=== PATIENT | male | born 1980 | race Caucasian/White ===

== ENCOUNTER 2020-01-03 16:07 | Emergency (ER) | payer BC ==
[2020-01-03 16:43] VITALS: BP 146/100; PULSE 70; TEMP 97.2; BMI 33.9
--- OUTSIDE RECORDS SUMMARY | 2020-01-03 16:51 | XMS ---
:1980 Author Organization [facility] Support Name Relationship Address Phone [address] [place] Unavailable [place] [address] MARIANNE MER[place] [address] Re-disclosure Warning The records that you are about to access may contain information from federally- assisted alcohol or drug abuse programs. If such information is present, then the following federally mandated warning applies: This information has been disclosed to you from records protected by federal confidentiality rules (42 CFR part 2). The federal rules prohibit you from making any further disclosure of this information unless further disclosure is expressly permitted by the written consent of the person to whom it pertains or as otherwise permitted by 42 CFR part 2. A general authorization for the release of medical or other information is NOT sufficient for this purpose. The Federal rules restrict any use of the information to criminally investigate or prosecute any alcohol or drug abuse patient.The records that you are about to access may contain highly sensitive health information, the redisclosure of which is protected by Article 27-F of the [facility] Public Health law. If you continue you may haveaccess to information: Regarding HIV / AIDS; Provided by facilities licensed or operated by the [facility] Office of Mental Health; or Provided by the [facility] Office for People With Developmental Disabilities. If such information is present, then the following [facility] mandated warning applies: This information has been disclosed to you from confidential records which are protected by state law. State law prohibits you from making any further disclosure of this information without the specific written consent of the person to whom it pertains, or as otherwise permitted by law. Any unauthorized further disclosure in violation of state law may result in a fine or detention sentence or both. A general authorization for the release of medical or other information is NOT sufficient authorization for further disclosure. Insurance Providers Payer name Policy type / Policy ID Covered Covered democrat's Policy Plan Coverage type democrat ID relationship to Elder Information elder BC OUT OF [id number] STATE [id number] Results ID Date Data Source [id number] 07/18/2019 12:00:00 AM EDT [facility] Name Value Range Interpretation Code Description Data Jess rce(s) Supporting Document(s ) nCoV [facility] RNA XXX ADEEL+probe- Imp This lab was ordered by FATOU BABCOCK M.D. and reported by [facility] ID Date Data Source [id number] 07/02/2019 12:00:00 AM EDT [facility] Name Value Range Interpretation Code Description Data Jess rce(s) Supporting Document(s ) 2018-nCoV [facility] RNA XXX ADEEL+probe- Imp This lab was ordered by FATOU BABCOCK M.D. and reported by [facility] Procedure
[2020-01-03] MEDS ORDERED: DICYCLOMINE HCL 20 MG TABLET PO ONE (17:27)
[2020-01-03] MEDS ORDERED: FAMOTIDINE 20 MG/50 ML IVPB 20 MG/50 ML MG IVPB ONE ×2 (17:27→18:00)
[2020-01-03] MEDS ORDERED: METOCLOPRAMIDE HCL INJECTION 10 MG/2 ML VIAL IVPB ONE (17:27)
[2020-01-03] MEDS ORDERED: ACETAMINOPHEN 1000 MG/100 ML VIAL (NON FORMULARY) IVPB ONE (17:27)
[2020-01-03] MEDS ORDERED: SODIUM CHLORIDE 1,000 ML IV STA ×2 (17:27→19:55)
[2020-01-03] MEDS ORDERED: DICYCLOMINE HCL 10 MG CAPSULE ONE (18:00)
[2020-01-03] MEDS ORDERED: METOCLOPRAMIDE HCL INJECTION 10 MG/2 ML VIAL ONE (18:00)
[2020-01-03] MEDS ORDERED: ACETAMINOPHEN INJECTION 100 ML IVPB ONE (18:00)
--- NOTE | 2020-01-03 18:00 | PDOC ---
History of Present Illness - General Chief Complaint: Pain Stated Complaint: STOMACH PAIN Time Seen by Provider: 01/03/20 17:09 History Source: Patient Exam Limitations: Clinical Condition - History of Present Illness Travel History: No Initial Comments: 01/03/20 18:05 Patient with no significant past medical history present with complaint of 3- week history of intermittent periumbilical pain and diarrhea. Patient reports seeing PCP 2 weeks ago for symptoms and was prescribed omeprazole for symptoms. Patient report abdominal pain worsening the past few days with nausea and vomiting depending on what kind of food he eats. Patient reports symptoms comes on every time he eats fast food especially [employer]. Patient reported eating [employer] last night. Denies fever, chills, blood in stool or mucus in stool. Denies recent travel. Denies any other symptoms Timing/Duration: reports: getting worse, other (3 weeks) Quality: reports: cramping Abdominal Pain Onset Location: reports: periumbilical Pain Radiation: reports: no radiation Alleviating Factors: improves with: Belching, Defecation. worse with: Eating, Vomiting Past History - Medical History Allergies/Adverse Reactions: Allergies Allergy/AdvReac Type Severity Reaction Status Date / Time No Known Allergies Allergy Verified 01/03/20 16:40 - Psycho-Social/Smoking History Smoking History: Never smoked - Substance Abuse Hx (Audit-C & DAST Scrn) How often the patient has a drink containing alcohol: Never Score: In Men: 4 or > Positive; In Women: 3 or > Positive: 0 Screen Result (Pos requires Nsg. Audit-10AR): Negative Review of Systems - Review of Systems Able to Perform ROS?: Yes Is the patient limited Yi proficient: No Constitutional: No: Chills, Fever, Malaise HEENTM: No: Symptoms Reported, See HPI, Eye Pain, Blurred Vision, Tearing, Recent change in vision, Double Vision, Cataracts, Ear Pain, Ocular Prothesis, Ear Discharge, Nose Pain, Nose Congestion, Tinnitus, Nose Bleeding, Hearing Lo ss, Throat Pain, Throat Swelling, Mouth Pain, Dental Problems, Difficulty Swallowing, Mouth Swelling, Other Respiratory: No: Symptoms reported, See HPI, Cough, Orthopnea, Shortness of Breath, SOB with Exertion, SOB at Rest, Stridor, Wheezing, Productive cough, Hemoptysis, Other Cardiac (ROS): No: Symptoms Reported, See HPI, Chest Pain, Edema, Irregular Heart Rate, Lightheadedness, Palpitations, Syncope, Chest Tightness, Other ABD/GI: Yes: Symptoms Reported, See HPI, Diarrhea, Nausea, Vomiting, Indigestion, Abdominal cramping. No: Abd. Pain w/ defecation, Blood Streaked Bowels, Constipated, Difficulty Swallowing, Poor Appetite, Poor Fluid Intake, Rectal Bleeding, Tarry Stools : No: Symptoms Reported, Dysuria, Discharge, Frequency, Hematuria, Urgency, Testicular Mass, Testicular Swelling, Other Musculoskeletal: No: Symptoms Reported Integumentary: No: Symptoms Reported Neurological: No: Symptoms reported, Weakness, Dizziness All Other Systems: Reviewed and Negative *Physical Exam - Vital Signs Last Vital Signs Temp Pulse Resp BP Pulse Ox 97.2 F L 70 18 146/100 97 01/03/20 16:40 01/03/20 16:40 01/03/20 16:40 01/03/20 16:40 01/03/20 16:40 - Physical Exam 01/03/20 17:58 GENERAL: Well developed, well nourished. Awake and alert. No acute distress. HEENT: Normocephalic, atraumatic. PERRLA, EOMI. No conjunctival pallor. Sclera are non-icteric. Moist mucous membranes. Oropharynx is clear. NECK: Supple. Full ROM. CARDIOVASCULAR: Regular rate and rhythm. No murmurs, rubs, or gallops. Distal pulses are 2+ and symmetric. PULMONARY: No evidence of respiratory distress. Lungs clear to auscultation bilaterally. No wheezing, rales or rhonchi. ABDOMINAL: Soft. Mild periumbilical subjective tenderness. Non-distended. No rebound or guarding. No organomegaly. Normoactive bowel sounds. MUSCULOSKELETAL Normal range of motion at all joints. SKIN: Warm and dry. Normal capillary refill. No rashes. No jaundice. NEUROLOGICAL: Alert, awake, appropriate. Gait is normal without ataxia. PSYCHIATRIC: Cooperative. Good eye contact. Appropriate mood General Appearance: Yes: Nourished, Appropriately Dressed. No: Apparent Distress ED Treatment Course - LABORATORY CBC & Chemistry Diagram: 01/03/20 18:30 01/03/20 18:30 - RADIOLOGY Radiology Studies Ordered: Category Date Time Status ABDOMEN & PELVIS CT WITH CONTR [CT] Stat CT Scan 01/03/20 17:43 Ordered Medical Decision Making - Medical Decision Making 01/03/20 18:06 Patient with no significant past medical history present with complaint of 3- week history of intermittent periumbilical pain and diarrhea. Patient reports seeing PCP 2 weeks ago for symptoms and was prescribed omeprazole for symptoms. Patient report abdominal pain worsening the past few days with nausea and vomiting depending on what kind of food he eats. Patient reports symptoms comes on every time he eats fast food especially [employer]. Patient reported eating [employer] last night. Denies fever, chills, blood in stool or mucus in stool. Denies recent travel. Denies any other symptoms Exam significant for mild subjective paramedical tenderness without guarding or rebound. Mild hyperactive diffuse bowel sounds. Patient afebrile. Negative Rovsing sign and negative obturator sign. Symptoms likely gastroenteritis versus less likely colitis or pancreatitis. CBC, CMP lipase lab ordered. IV hydration with 1 L normal saline ordered. Pepcid 20 mg IV and Reglan 10 mg IV ordered for abdominal pain and nausea. Tylenol 1 g IV ordered for abdominal pain. Abdominal and pelvic CT with IV contrast ordered to rule out acute abdomen pathology. Treat based on lab and imaging results 01/03/20 20:33 CBC shows high H&H which is likely caused by patient being hemoconcentrated from dehydration. Second bag of IV hydration ordered and patient will be sent for CT of abdominal pelvis to rule out acute normality after second hydration. Patient signed out to RIKI Shah for follow-up care Discharge - Discharge Information Problems reviewed: Yes Clinical Impression/Diagnosis: Nausea and vomiting in adult, Malaise, Gastroenteritis Condition: Stable - Follow up/Referral Referrals: Cecy Martin MD [Primary Care Provider] - - Patient Discharge Instructions - Post Discharge Activity
[2020-01-03 19:25] LABS: BASO % 0.7 % (0-2.0); EOS % 0.2 % (0-4.5); HEMATOCRIT 54.8 % (35.4-49); HEMOGLOBIN 18.2 GM/dL (11.7-16.9); LYMPH % 30.1 % (8-40); MCH 29.7 pg (25.7-33.7); MCHC 33.1 g/dl (32.0-35.9); MEAN CELL VOLUME 89.7 fl (80-96); MONO % 5.3 % (3.8-10.2); NEUT % 63.7 % (42.8-82.8); PLATELET COUNT 398 K/MM3 (134-434); RBC 6.11 M/mm3 (4.00-5.60); RDW 14.1 % (11.9-15.9); WHITE BLOOD COUNT 6.3 K/mm3 (4.0-10.0)
[2020-01-03 19:50] LABS: ALBUMIN 3.7 g/dl (3.4-5.0); BILIRUBIN,TOTAL 1.2 mg/dL (0.2-1); BLOOD UREA NITROGEN 9.2 mg/dL (7-18); CALCIUM 9.3 mg/dL (8.5-10.1); CREATININE 1.4 mg/dL (0.55-1.3); TOT PROT 8.2 g/dl (6.4-8.2)
--- NOTE | 2020-01-03 21:44 | PDOC ---
*Physical Exam - Vital Signs Last Vital Signs Temp Pulse Resp BP Pulse Ox 97.2 F L 70 18 146/100 97 01/03/20 16:40 01/03/20 16:40 01/03/20 16:40 01/03/20 16:40 01/03/20 16:40 - Physical Exam Gastrointestinal/Abdominal: positive: Normal Bowel Sounds, Soft. negative: Tender ED Treatment Course - LABORATORY CBC & Chemistry Diagram: 01/03/20 18:30 01/03/20 18:30 - ADDITIONAL ORDERS Additional order review: Laboratory Results 01/03/20 18:30 Sodium 138 Potassium 5.0 Chloride 104 Carbon Dioxide 28 Anion Gap 6 L BUN 9.2 Creatinine 1.4 H Est GFR (CKD-EPI)AfAm 73.35 Est GFR (CKD-EPI)NonAf 63.28 Random Glucose 79 Calcium 9.3 Total Bilirubin 1.2 H AST 52 H ALT 69 H Alkaline Phosphatase 44 L Total Protein 8.2 Albumin 3.7 Lipase 242 01/03/20 18:30 RBC 6.11 H MCV 89.7 MCHC 33.1 RDW 14.1 MPV 7.0 L Neutrophils % 63.7 Lymphocytes % 30.1 Monocytes % 5.3 Eosinophils % 0.2 Basophils % 0.7 - Medications Given in the ED: ED Medications Discontinued Medications Generic Name Dose Route Start Last Admin Trade Name Vuq PRN Reason Stop Dose Admin Acetaminophen 1,000 mg 01/03/20 17:27 01/03/20 18:59 Ofirmev Injection - IVPB 01/03/20 17:28 1,000 mg ONCE ONE Administration Dicyclomine HCl 20 mg 01/03/20 17:27 01/03/20 18:59 Bentyl - PO 01/03/20 17:28 20 mg ONCE ONE Administration Sodium Chloride 1,000 mls @ 1,000 mls/hr 01/03/20 17:27 01/03/20 18:59 Normal Saline - IV 01/03/20 18:26 1,000 mls/hr ASDIR STA Administration Famotidine/Sodium Chloride 20 mg in 50 mls @ 100 mls/hr 01/03/20 17:27 01/03/20 19:00 Pepcid 20 Mg Premixed Ivpb - IVPB 01/03/20 17:56 100 mls/hr ONCE ONE Administration Sodium Chloride 1,000 mls @ 1,000 mls/hr 01/03/20 19:55 01/03/20 20:18 Normal Saline - IV 01/03/20 20:54 1,000 mls/hr ASDIR STA Administration Metoclopramide HCl 10 mg 01/03/20 17:27 01/03/20 19:00 Reglan Injection - IVPB 01/03/20 17:28 10 mg ONCE ONE Administration ED Progress Note - Progress Note Progress Note: 01/03/20 21:45 Received signout from EVIE Alvarez. Briefly this is a 39-year-old male without medical history with 3 weeks of periumbilical pain and diarrhea. Patient was seen and evaluated by his PCP approximately 2 weeks ago and was treated with omeprazole. Notices the pain gets worse every time he eats fast food notably [employer]. Needs regular food he does well. Laboratory testing notable for possible hemoconcentration given and hemoglobin hematocrit 18.2/54.8 and creatinine of 1.4. CT is pending for disposition. Medical Decision Making - Medical Decision Making 01/03/20 22:05 Laboratory Tests 01/03/20 01/03/20 01/03/20 18:30 18:30 21:30 WBC 6.3 RBC 6.11 H Hgb 18.2 H Hct 54.8 H MCV 89.7 MCH 29.7 MCHC 33.1 RDW 14.1 Plt Count 398 MPV 7.0 L Absolute Neuts (auto) 4.0 Neutrophils % 63.7 Lymphocytes % 30.1 Monocytes % 5.3 Eosinophils % 0.2 Basophils % 0.7 Nucleated RBC % 0 Sodium 138 Potassium 5.0 Chloride 104 Carbon Dioxide 28 Anion Gap 6 L BUN 9.2 Creatinine 1.4 H Est GFR (CKD-EPI)AfAm 73.35 Est GFR (CKD-EPI)NonAf 63.28 Random Glucose 79 Calcium 9.3 Total Bilirubin 1.2 H AST 52 H ALT 69 H Alkaline Phosphatase 44 L Total Protein 8.2 Albumin 3.7 Lipase 242 Urine Color Yellow Urine Appearance Clear Urine pH 8.0 Ur Specific Boaz 1.024 Urine Protein Negative Urine Glucose (UA) Negative Urine Ketones Negative Urine Blood Negative Urine Nitrite Negative Urine Bilirubin Negative Urine Urobilinogen 0.2 Ur Leukocyte Esterase Negative 01/03/20 22:06 CT scan is read by Dr. Figueroa: No definite CT findings of acute pathology are noted. Nonspecific 1.3 cm right renal hypodense lower pole cortical focus is seen possibly representing a complex cyst and probably less likely a solid nodule. Correlation with nonemergent sonography is suggested. Within the lower anterior pelvic wall bilaterally note is made of curvilinear discontinuous calcifications were made postsurgical posttraumatic in nature. Given normal CT findings I feel it is safe to discharge patient home to follow- up with his primary doctor. Patient has been encouraged to increase his oral hydration over the next few days and a prescription for Zofran has been sent to patient's preferred pharmacy. I discussed the physical exam findings, ancillary test results and final diagnoses with the patient. I answered all of the patient's questions. The patient was satisfied with the care received and felt comfortable with the discharge plan and treatment plan. The patient will call their primary care physician within 24 hours to arrange follow-up and will return to the Emergency Department with any new, persistent or worsening symptoms. Portions of this note have been documented using voice recognition software. As a result, errors may occur in the senior staff psychologist process. Effort has been made to correct all grammatical and senior staff psychologist error, but some may have been missed w hich may produce sporadic inaccurate senior staff psychologist or nonsensical phrases. Discharge - Discharge Information Problems reviewed: Yes Clinical Impression/Diagnosis: Nausea and vomiting in adult, Malaise, Gastroenteritis Condition: Stable Disposition: HOME - Admission No - Additional Discharge Information Prescriptions: Ondansetron [Zofran *Odt*] 4 mg SL TID PRN #21 od.tablet PRN Reason: Nausea And/Or Vomiting - Follow up/Referral Referrals: Cecy Martin MD [Primary Care Provider] - - Patient Discharge Instructions Additional Instructions: Rest, drink lots of fluids: Teas, water, soups Kim twila, carbonated beverages for the bubbles May try peppermint teas Avoid heavy , spicy or fatty foods until symptoms have resolved Avoid contact with others until fevers and symptoms resolved Lots of handwashing and good hygiene Continue [id number] medications for symptomatic relief Tylenol or Motrin for fever and pain May use Zofran-one tablet dissolved on tongue as needed for nauseousness. May repeat times one every 8 hours Followup with private physician in one to 2 days as needed Return to emergency department for worsened symptoms, fevers, dehydration - Post Discharge Activity
[2020-01-03 22:01] LABS: URINE APPEARANCE CLEAR; URINE BILIRUBIN NEGATIVE (NEGATIVE); URINE COLOR YELLOW; URINE GLUCOSE (UA) NEGATIVE (NEGATIVE); URINE KETONE NEGATIVE (NEGATIVE); URINE LEUK ESTERASE NEGATIVE (NEGATIVE); URINE NITRITE NEGATIVE (NEGATIVE); URINE PROTEIN NEGATIVE (NEGATIVE); URINE UROBILINOGEN 0.2 mg/dL (0.2-1.0)
== END 2020-01-03 22:45 | disposition home or self-care (01) ==
LOC: JER 16:07
PROC: 3E0333Z Introduction of Anti-inflammatory into Peripheral Vein, Percutaneous Approach (ICD-10-PCS; principal; 2020-01-03)
PROC: 3E033GC Introduction of Other Therapeutic Substance into Peripheral Vein, Percutaneous Approach (ICD-10-PCS; 2020-01-03)
PROC: 3E0337Z Introduction of Electrolytic and Water Balance Substance into Peripheral Vein, Percutaneous Approach (ICD-10-PCS; 2020-01-03)
DX: R11.2 Nausea with vomiting, unspecified (principal); R53.81 Other malaise; K52.9 Noninfective gastroenteritis and colitis, unspecified
CPT/HCPCS: 36415; 74177-TC; 80053; 81003; 83690; 85025; 87086; 99285-25; J0131; Q9967